=== PATIENT | female | born 1990 | race Caucasian/White ===

== ENCOUNTER 2016-09-08 19:18 | Emergency (ER) | payer MEDICAID ==
[2016-09-08] MEDS ORDERED: HYDROmorphONE/DILAUDID 1 MG/ML SYR IVP ONE (19:42)
--- NOTE | 2016-09-08 19:44 | EDPHY ---
H & P Stated Complaint: pt says she fell skateboarding, c/o L wrist pain - obvious deformity Time Seen by Provider: 09/08/16 19:34 HPI/ROS: CHIEF COMPLAINT: WRIST PAIN HISTORY OF PRESENT ILLNESS: Patient is a 26-year-old female who comes to the emergency department complaining of left wrist pain. She was skateboarding and fell onto an outstretched hand. She has a dinner fork deformity to her left wrist. Abrasions but no open fracture. Normal sensation and movement in her fingers. Normal capillary refill. She denies other injuries. REVIEW OF SYSTEMS: Constitutional: denies: chills, fever, recent illness, recent injury EENTM: denies: blurred vision, double vision, nose congestion Respiratory: denies: cough, shortness of breath Cardiac: denies: chest pain, irregular heart rate, lightheadedness, palpitations Gastrointestinal/Abdominal: denies: abdominal pain, diarrhea, nausea, vomiting, blood streaked stools Genitourinary: denies: dysuria, frequency, hematuria, pain Musculoskeletal: See HPI Skin: denies: lesions, rash, jaundice, bruising Neurological: denies: headache, numbness, paresthesia, tingling, dizziness, weakness Hematologic/Lymphatic: denies: blood clots, easy bleeding, easy bruising Immunologic/allergic: denies: HIV/AIDS, transplant EXAM: GENERAL: Well-appearing, well-nourished and in no acute distress. HEAD: Atraumatic, normocephalic. EYES: Pupils equal round and reactive to light, extraocular movements intact, sclera anicteric, conjunctiva are normal. ENT: TMs normal, nares patent, oropharynx clear without exudates. Moist mucous membranes. NECK: Normal range of motion, supple without lymphadenopathy or JVD. LUNGS: Breath sounds clear to auscultation bilaterally and equal. No wheezes rales or rhonchi. HEART: Regular rate and rhythm without murmurs, rubs or gallops. ABDOMEN: Soft, nontender, normoactive bowel sounds. No guarding, no rebound. No masses appreciated. BACK: No CVA tenderness, no spinal tenderness, step-offs or deformities EXTREMITIES: Dinner fork deformity to left wrist. Normal sensation and movement distally. Normal capillary refill. No open fracture NEUROLOGICAL: Cranial nerves II through XII grossly intact. Normal speech, normal gait. 5/5 strength, normal movement in all extremities, normal sensation PSYCH: Normal mood, normal affect. SKIN: Warm, dry, normal turgor, no visible rashes or lesions. Source: Patient Exam Limitations: No limitations - Medical/Surgical History Hx Asthma: No Hx Chronic Respiratory Disease: No Hx Diabetes: No Hx Cardiac Disease: No Hx Renal Disease: No Hx Cirrhosis: No Hx Alcoholism: No Hx HIV/AIDS: No Hx Splenectomy or Spleen Trauma: No Other PMH: none - Family History Significant Family History: No pertinent family hx - Social History Smoking Status: Never smoked Alcohol Use: Sober Drug Use: None Constitutional: Initial Vital Signs Heart Rate 97 09/08/16 19:22 Respiratory Rate 18 09/08/16 19:22 Blood Pressure 137/81 H 09/08/16 19:22 O2 Sat (%) 96 09/08/16 19:22 O2 Delivery Mode [Post Non-Rebreather Mask Procedure 3rd] O2 Delivery Mode [Post Non-Rebreather Mask Procedure 2nd] O2 Delivery Mode [Post Non-Rebreather Mask Procedure 1st] O2 Delivery Mode [Procedural Non-Rebreather Mask 2nd] O2 Delivery Mode [Procedural Non-Rebreather Mask 1st] O2 Delivery Mode Room Air O2 (L/minute) [Post Procedure 15 3rd] O2 (L/minute) [Post Procedure 15 2nd] O2 (L/minute) [Post Procedure 15 1st] O2 (L/minute) [Procedural 2nd] 15 O2 (L/minute) [Procedural 1st] 15 O2 (L/minute) 15 Allergies/Adverse Reactions: No Known Allergies Allergy (Unverified 09/08/16 19:25) Home Medications: Medication Instructions Recorded Hydrocodone/APAP 5/325 [[place] 1 - 2 tab PO Q4H PRN #10 tab 09/08/16 5/325 (RX)] Ibuprofen 800 mg PO TID PRN #30 tablet 09/08/16 Medical Decision Making Procedures: Procedure: Splint placement. A shugar tong splint was applied. After application of the splint I returned and re-examined the patient. The splint was adequately immobilizing the joint and distal to the splint the patient's circulation and sensation was intact. Procedure: Procedural sedation. Indication: fracture reduction. A pre-sedation evaluation was completed on the patient just prior to the procedure. Patient is an appropriate candidate for procedural sedation with a [ normal] 3-3-2 rule assessment and a Mallampati airway score of class 1. The risks of the sedation were discussed including but not limited to dysrhythmia, need for airway intervention or general anesthesia, disability, ; and verbal consent obtained. A timeout was observed and patient's identity confirmed. The patient was sedated with ketamine 70mg. The patient was monitored with continuous pulse oximetry, capnography, and transportation coordinator. There were no complications and no significant hypoxemia. I remained at the bedside for the sedation. The total time I spent in the procedural sedation was 20 minutes. ED Course/Re-evaluation: 9:15 pt feeling much better. discussed f/u and indications for returning. eager to go. Differential Diagnosis: Partial list of the Differential diagnosis considered include but were not limited to; fracture, dislocation and although unlikely based on the history and physical exam, I also considered vascular injury, nerve injury. I discussed these differential diagnoses and the plan with the patient as well as the usual and expected course. The patient understands that the diagnosis is provisional and that in medicine we are not always correct and that further workup is often warranted. Usual and customary warnings were given. All of the patient's questions were answered. The patient was instructed to return to the emergency department should the symptoms at all worsen or return, otherwise to followup with the physician as we discussed. - Data Points Medications Given: Discontinued Medications Hydrocodone Bitart/Acetaminophen ([place] 5/325) 1 tab PO EDNOW ONE Stop: 09/08/16 21:20 Last Admin: 09/08/16 21:26 Dose: 1 tab Hydrocodone Bitart/Acetaminophen ([place] 5/325mg Prepack#6) 1 btl TAKEHOME EDNOW ONE Stop: 09/08/16 21:27 Last Admin: 09/08/16 21:26 Dose: 1 btl Hydromorphone HCl (Dilaudid) 1 mg IVP EDNOW ONE Stop: 09/08/16 19:43 Last Admin: 09/08/16 19:54 Dose: 1 mg Sodium Chloride (Ns) 1,000 mls @ 0 mls/hr IV ONCE ONE PRN Reason: Wide Open Stop: 09/08/16 20:33 Last Admin: 09/08/16 20:30 Dose: 1,000 mls Ibuprofen (Motrin) 600 mg PO EDNOW ONE Stop: 09/08/16 21:20 Last Admin: 09/08/16 21:26 Dose: 600 mg Ketamine HCl (Ketamine) 100 mg IVP EDNOW ONE Stop: 09/08/16 20:33 Last Admin: 09/08/16 21:13 Dose: 70 mg Propofol (Diprivan) 100 mg IVP EDNOW ONE Stop: 09/08/16 20:33 Last Admin: 09/08/16 21:13 Dose: Not Given Departure - Departure Disposition: Home, Routine, Self-Care Clinical Impression: Wrist fracture, left Qualifiers: Encounter type: initial encounter Fracture type: closed Qualified Code(s): S62.102A - Fracture of unspecified carpal bone, left wrist, initial encounter for closed fracture Condition: Fair Instructions: Wrist Fracture in Adults (ED) Referrals: NONE *PRIMARY CARE P,. [Primary Care Provider] - As per Instructions Elias Street MD [Medical Doctor] - As per Instructions Prescriptions: Hydrocodone/APAP 5/325 [[place] 5/325 (RX)] 1 - 2 tab PO Q4H PRN #10 tab PRN Reason: Pain, Moderate Ibuprofen 800 mg PO TID PRN #30 tablet PRN Reason: Pain, Moderate
[2016-09-08] MEDS ORDERED: KETAMINE 100 MG/10 ML SYR IVP ONE ×2 (20:16→20:32)
[2016-09-08] MEDS ORDERED: PROPOFOL 200 MG/20 ML VIAL ONE (20:16)
[2016-09-08] MEDS ORDERED: NS 1,000 ML IV ONE (20:32)
[2016-09-08] MEDS ORDERED: PROPOFOL 200 MG/20 ML VIAL IVP ONE (20:32)
[2016-09-08 21:07] VITALS: TEMP 97.7
[2016-09-08 21:10] VITALS: RESP 12
[2016-09-08 21:14] VITALS: O2SAT 98
[2016-09-08 21:18] VITALS: BP 126/70; PULSE 83
[2016-09-08] MEDS ORDERED: IBUPROFEN 600 MG TAB PO ONE (21:19)
[2016-09-08] MEDS ORDERED: HYDROCODONE/APAP 5/325 TAB PO ONE (21:19)
[2016-09-08] MEDS ORDERED: HYDROCOD/APAP 5/325 PREPACK#6 BTL TAKEHOME ONE ×2 (21:20→21:26)
== END 2016-09-08 21:40 | disposition home or self-care (01) ==
PROC: 0PSJXZZ Reposition Left Radius, External Approach (ICD-10-PCS; principal; 2016-09-08)
DX: S52.502A Unspecified fracture of the lower end of left radius, initial encounter for closed fracture (principal); V00.131A Fall from skateboard, initial encounter; Y93.51 Activity, roller skating (inline) and skateboarding
CPT/HCPCS: 96374; J1170; J2704; L3980